=== PATIENT | male | born 1965 | race Caucasian/White ===

== ENCOUNTER 2020-05-10 07:32 | Outpatient (REF) | payer BC, SELFPAY ==
[2020-05-10 08:46] LABS: Lipase 210 U/L (8-78)
== END 2020-05-10 07:33 | disposition home or self-care (01) ==
LOC: HO.LAB 07:32
PROVIDERS: PCP Nurse Practitioner Family; Visit Provider Nurse Practitioner Family
DX: R74.8 Abnormal levels of other serum enzymes (principal)
CPT/HCPCS: 83690

== ENCOUNTER 2020-05-16 17:48 | Emergency (ER) | payer BC, SELFPAY ==
[2020-05-16 17:59] VITALS: BP 139/79; PULSE 63; RESP 16; TEMP 36.7; O2SAT 97; BMI 29.9
--- NOTE | 2020-05-16 19:14 | US_ITS ---
EXAMINATION: US ABDOMEN COMPLETE CLINICAL INFORMATION: Epigastric and upper abdominal pain. Elevated lipase. COMPARISON: Limited abdominal ultrasound and CT abdomen pelvis 03/26/2020 TECHNIQUE: Real-time imaging of the abdominal viscera. FINDINGS: PANCREAS: Mildly prominent pancreatic duct measuring 3 mm in diameter. Visualized portions of pancreas are otherwise normal in appearance. ABDOMINAL AORTA: The proximal, mid, and distal segments are normal in caliber. INFERIOR VENA CAVA: Visualized portions are normal. LIVER: Normal. The liver is normal in size. The liver contour is normal. Parenchymal echogenicity is normal. No focal hepatic lesion. There is no intrahepatic biliary duct dilatation seen. GALLBLADDER: The gallbladder is relatively contracted but unremarkable in appearance. COMMON BILE DUCT: Normal in caliber measuring 0.4 cm in diameter. RIGHT KIDNEY: Normal. No hydronephrosis. No renal calculi or focal parenchymal lesions. The kidney measures 11.1 cm in maximum dimension. LEFT KIDNEY: Normal. No hydronephrosis. No renal calculi or focal parenchymal lesions. The kidney measures 10 point cm in maximum dimension. SPLEEN: Normal. The spleen measures 9.7 cm in maximum dimension. Small adjacent splenule. FREE FLUID: None. IMPRESSION: Mildly prominent pancreatic duct measuring 3 mm in diameter. Visualized portions of pancreas are otherwise normal in appearance.
--- NOTE | 2020-05-16 19:16 | ED_ITS ---
HPI - Abdominal Pain General Chief Complaint: Recheck/Abnormal Lab/Rx Stated Complaint: abnormal labs Time Seen by Provider: 05/16/20 19:01 Source: patient Mode of arrival: ambulatory History of Present Illness HPI narrative: 54-year-old male with a past medical history of elevated lipase, family history of pancreatic and stomach CA presenting to ED sent in by PCP for back/RUQ pain radiating to epigastrium times a few weeks w/elevated lipase on outpatient labs on 05/10. Patient reports pain improves with eating. Denies nausea, vomiting, diarrhea, constipation, fever, chills, dysuria /hematuria MD elicited complaint: abdominal pain Related Data Allergies Allergy/AdvReac Type Severity Reaction Status Date / Time amoxicillin [From AUGMENTIN] Allergy Unknown UNKNOWN Verified 05/16/20 18:04 clarithromycin [From BIAXIN] Allergy Unknown UNKNOWN Verified 05/16/20 18:04 clavulanic acid Allergy Unknown UNKNOWN Verified 05/16/20 18:04 [From AUGMENTIN] Biaxin Allergy Unknown anaphylaxis Uncoded 03/16/20 00:00 Review of Systems Review of Systems Constitutional: No Weight loss, No Fever, No Chills, No Night Sweats Cardiovascular: No Chest Pain, No SOB, No Dyspnea on Exertion Respiratory: No Cough, No Sputum, No Wheezing Gastrointestinal: No Nausea, No Vomiting, No Diarrhea, No Constipation, + Abdominal pain Genitourinary: No Dysuria, No Urinary Frequency, No Hematuria, No Urinary Incontinence, No Urgency, No Flank Pain, No Urinary Flow Changes Skin: No Skin Lesions, No rash Yes all other systems are reviewed and are negative Physical Exam Vital Signs: Vital Signs: Vital Signs Temp Pulse Resp BP Pulse Ox 05/16/20 20:08 97.7 F 57 20 117/64 97 05/16/20 17:59 98.0 F 63 16 139/79 97 Body Mass Index 29.9 Const: General: cooperative and healthy appearing Orientation/conscious ness: patient oriented x3 Limitations: no limitations HENMT: Head: Yes normal to inspection Ears: hearing grossly normal bilaterally General nose exam: Normal external nose present Face and sinus: Yes normal facial exam Eyes: General: appearance normal, both eyes and all related structures EOM: EOMs intact bilaterally Neck: Neck: Yes normal visual inspection Resp: Effort & Inspection: normal respiratory effort Cardio: Rate: regular rate GI: Inspection: Yes normal to inspection Palpation (GI): Soft to palpation, Tenderness to palpation present (GI) in the epigastrum, in the LUQ and in the RUQ; with no rebound tenderness, no guarding and not rigid Skin: Rashes: no rashes Wounds: no wounds Neuro: General: patient oriented x3 Gait exam (Neuro): Normal gait present Extrem: General: Yes normal to inspection Course Course Course Narrative: - labs at patient's baseline / unremarkable. Lipase 55 (down from 210 on 05/10), UA negative - ultrasound showed mildly prominent pancreatic duct measuring 3 mm in diameter. Visualized portions of the pancreas are otherwise normal in appearance >> will refrain from CT at this time as patient with recent CT in February which showed unremarkable pancreas/ biliary ducts and no mass. Patient has follow-up with GI this Sunday w/Dr. Merchant. Patient in agreement with plan, worrisome signs and symptoms and strict return precautions discussed. Patient verbalized understanding feel safe for discharge MDM - Abdominal Pain MDM Narrative Medical decision making narrative: 54-year-old male with a past medical history of elevated lipase, family history of pancreatic and stomach CA presenting to ED sent in by PCP for back/RUQ pain radiating to epigastrium x a few weeks w/elevated lipase on outpatient labs on 05/10. On exam VSS, NAD/ well- appearing. Concern for pancreatitis/cholecystitis /cholelithiasis or obstruction. Lower concern for ACS/dissection, diverticulitis or appendicitis Plan: Labs, UA, abdomen ultrasound, IVF, reassess Lab Data Result diagrams: 05/16/20 19:23 05/16/20 19:23 Labs: Lab Results 05/16/20 05/16/20 05/16/20 Range/Units 19:23 19:23 19:23 WBC 6.7 (4.8-10.8) X10*3/uL RBC 4.70 (4.60-5.80) X10*6/uL Hgb 15.3 (14.0-18.0) g/dl Hct 44.8 (42-52) % MCV 95.3 (80-98) fL MCH 32.6 (27.0-33.0) pg MCHC 34.2 (31.0-36.0) g/dl RDW 12.1 (11.0-16.0) % Plt Count 238 (160-400) X10*3/uL MPV 9.2 L (9.4-12.4) fL Immature Gran % (Auto) 0.3 (0.0-0.4) % Neut % (Auto) 46.9 (45-73) % Lymph % (Auto) 38.5 (20-40) % [place] % (Auto) 9.9 (2-11) % Eos % (Auto) 3.7 (0-4) % Baso % (Auto) 0.7 (0-2) % Lymph # (Auto) 2.6 (1.2-4.9) X10*3/uL [place] # (Auto) 0.7 (0.1-1.2) X10*3/uL Eos # (Auto) 0.3 (0.0-0.4) X10*3/uL Baso # (Auto) 0.1 (0.0-0.2) X10*3/uL Abs Immat Gran (auto) 0.02 (0.00-0.03) X10*3/uL Absolute Neuts (auto) 3.1 (2.0-8.3) X10*3/uL Absolute Nucleated RBC 0.000 (0.0-0.012) X10*3/uL Nucleated RBC % (auto) 0.0 (0.0-0.2) /100WBC Hold Blue Top SEE NOTE Sodium 139 (135-145) mmol/L Potassium 4.1 (3.3-5.1) mmol/l Chloride 104 (96-108) mmol/L Carbon Dioxide 28 (22-29) mmol/L Anion Gap 11 L (12-20) BUN 25 H (9-16) mg/dL Creatinine 0.90 (0.5-1.4) mg/dL Estim Creat Clear Calc 94.4 Estimated GFR > 60 Random Glucose 100 (60-115) mg/dL Calcium 8.8 (8.4-10.2) mg/dL Magnesium (1.6-2.6) mg/dL Total Bilirubin 0.3 (0.0-1.0) mg/dL Direct Bilirubin 0.2 (0.0-0.5) mg/dL AST 21 (5-37) U/L ALT 21 (0-40) U/L Alkaline Phosphatase 78 (39-117) U/L Total Protein 7.0 (6.5-8.0) g/dL Albumin 4.0 (3.5-5.0) g/dL Lipase 55 (8-78) U/L Urine Color Urine Appearance Urine pH (5.0-8.0) Ur Specific [place] (1.005-1.025) Urine Protein (NEG-TRACE) MG/DL Urine Glucose (UA) (NEG) MG/DL Urine Ketones (NEG) MG/DL Urine Blood (NEG) Urine Nitrite (NEG) Ur Leukocyte Esterase (NEG) 05/16/20 05/16/20 Range/Units 19:23 19:23 WBC (4.8-10.8) X10*3/uL RBC (4.60-5.80) X10*6/uL Hgb (14.0-18.0) g/dl Hct (42-52) % MCV (80-98) fL MCH (27.0-33.0) pg MCHC (31.0-36.0) g/dl RDW (11.0-16.0) % Plt Count (160-400) X10*3/uL MPV (9.4-12.4) fL Immature Gran % (Auto) (0.0-0.4) % Neut % (Auto) (45-73) % Lymph % (Auto) (20-40) % [place] % (Auto) (2-11) % Eos % (Auto) (0-4) % Baso % (Auto) (0-2) % Lymph # (Auto) (1.2-4.9) X10*3/uL [place] # (Auto) (0.1-1.2) X10*3/uL Eos # (Auto) (0.0-0.4) X10*3/uL Baso # (Auto) (0.0-0.2) X10*3/uL Abs Immat Gran (auto) (0.00-0.03) X10*3/uL Absolute Neuts (auto) (2.0-8.3) X10*3/uL Absolute Nucleated RBC (0.0-0.012) X10*3/uL Nucleated RBC % (auto) (0.0-0.2) /100WBC Hold Blue Top Sodium (135-145) mmol/L Potassium (3.3-5.1) mmol/l Chloride (96-108) mmol/L Carbon Dioxide (22-29) mmol/L Anion Gap (12-20) BUN (9-16) mg/dL Creatinine (0.5-1.4) mg/dL Estim Creat Clear Calc Estimated GFR Random Glucose (60-115) mg/dL Calcium (8.4-10.2) mg/dL Magnesium 2.3 (1.6-2.6) mg/dL Total Bilirubin (0.0-1.0) mg/dL Direct Bilirubin (0.0-0.5) mg/dL AST (5-37) U/L ALT (0-40) U/L Alkaline Phosphatase (39-117) U/L Total Protein (6.5-8.0) g/dL Albumin (3.5-5.0) g/dL Lipase (8-78) U/L Urine Color YELLOW Urine Appearance CLEAR Urine pH 5.5 (5.0-8.0) Ur Specific [place] 1.025 (1.005-1.025) Urine Protein NEG (NEG-TRACE) MG/DL Urine Glucose (UA) NEG (NEG) MG/DL Urine Ketones NEG (NEG) MG/DL Urine Blood NEG (NEG) Urine Nitrite NEG (NEG) Ur Leukocyte Esterase NEG (NEG) Discharge Plan Discharge Clinical Impression: Abnormality of pancreatic duct Abdominal pain Qualifiers: Abdominal location: right upper quadrant Qualified Code(s): R10.11 - Right upper quadrant pain Patient Disposition: Home, Self-Care Instructions: Abdominal Pain (ED) Additional Instructions: your blood work showed a lipase of 55 Otherwise unremarkable Your ultrasound showed a mildly prominent pancreatic duct measuring 3 mm in diameter. You recently had a CT scan in February that did not show any abnormalities or mass, it is crucial that he follow-up with GI on Sunday as more eduled If her symptoms persist or worsen, become unbearable, you are unable to eat or drink or have fever return to the ED immediately Referrals: Phu Merchant [Physician] - 5 days ( as scheduled) [facility] Past Medical History Attestation statement: The following information was validated with the patient. Source: old records reviewed and nursing notes reviewed Medical History (Updated 05/16/20 @ 22:32 by ZARINA Eduardo) Elevated lipase Social History Social History Smoking Status: Never smoker Use of substances other than those prescribed or required for medical reasons: No Advance Directives: No Advance Directives Information Provided: No
[2020-05-16] MEDS: 0.9 % Sodium Chloride 1,000 ML 999 ML IVCONT (19:27)
[2020-05-16 19:37] LABS: MANUAL DIFF FLAG NO
[2020-05-16 19:38] LABS: Basophils Absolute Auto 0.1 X10*3/uL (0.0-0.2); Basophils Percent Auto 0.7 % (0-2); Eosinophils Absolute Auto 0.3 X10*3/uL (0.0-0.4); Eosinophils Percent Auto 3.7 % (0-4); Hematocrit 44.8 % (42-52); Hemoglobin 15.3 g/dl (14.0-18.0); Imm Gran Abs Auto 0.02 X10*3/uL (0.00-0.03); Imm Gran Pct Auto 0.3 % (0.0-0.4); Lymphocytes Absolute Auto 2.6 X10*3/uL (1.2-4.9); Lymphocytes Percent Auto 38.5 % (20-40); Mean Corpuscular HGB Conc 34.2 g/dl (31.0-36.0); Mean Corpuscular Hemoglobin 32.6 pg (27.0-33.0); Mean Corpuscular Volume 95.3 fL (80-98); Mean Platelet Volume 9.2 fL (9.4-12.4); Monocytes Absolute Auto 0.7 X10*3/uL (0.1-1.2); Monocytes Percent Auto 9.9 % (2-11); Neutrophils Absolute Auto 3.1 X10*3/uL (2.0-8.3); Neutrophils Percent Auto 46.9 % (45-73); Platelet Count 238 X10*3/uL (160-400); Red Cell Distribution Width 12.1 % (11.0-16.0); White Blood Count 6.7 X10*3/uL (4.8-10.8)
[2020-05-16 19:40] LABS: Glucose Urine UA NEG (NEG); Leukocyte Esterase Urine NEG (NEG); Nitrite Urine NEG (NEG); PH 5.5 (5.0-8.0); Specific Gravity - Urine 1.025 (1.005-1.025); Urine Blood NEG (NEG); Urine Ketones NEG (NEG); Urine Protein NEG (NEG-TRACE)
[2020-05-16 19:48] LABS: Appearance Urine CLEAR; Color Urine YELLOW
[2020-05-16 20:08] VITALS: BP 117/64; PULSE 57; RESP 20; TEMP 36.5; O2SAT 97
[2020-05-16 20:10] LABS: Alanine Aminotransferase 21 U/L (0-40); Alkaline Phosphatase 78 U/L (39-117); Anion Gap 11 (12-20); Aspartate Amino Transferase 21 U/L (5-37); Bilirubin Direct 0.2 mg/dL (0.0-0.5); Bilirubin Total 0.3 mg/dL (0.0-1.0); Blood Urea Nitrogen 25 mg/dL (9-16); Calcium 8.8 mg/dL (8.4-10.2); Carbon Dioxide 28 mmol/L (22-29); Chloride 104 mmol/L (96-108); Creatinine Clr Calc Pharmacy 94.4; Estimated Glomerular Filt Rate > 60; Glucose Random 100 mg/dL (60-115); Lipase 55 U/L (8-78); Potassium 4.1 mmol/l (3.3-5.1); Sodium 139 mmol/L (135-145)
[2020-05-16 20:11] LABS: Magnesium 2.3 mg/dL (1.6-2.6)
--- NOTE | 2020-05-16 20:58 | PC.NURSE ---
US BEING DONE AT BEDSIDE AT THIS TIME.
== END 2020-05-16 22:49 | disposition home or self-care (01) ==
PROVIDERS: Physician Assistant; Emergency Provider Student in an Organized Health Care Education/Training Program; PCP Nurse Practitioner Family
DX: R10.11 Right upper quadrant pain (principal); Q45.3 Other congenital malformations of pancreas and pancreatic duct
CPT/HCPCS: 36415; 76700; 80048; 80076; 81003; 83690; 83735; 85025; 96360; 99284; 99285

== ENCOUNTER 2020-05-20 07:39 | Outpatient (REF) | payer BC, SELFPAY ==
[2020-05-20 09:14] LABS: Alanine Aminotransferase 19 U/L (0-40); Albumin Level 4.2 g/dL (3.5-5.0); Alkaline Phosphatase 78 U/L (39-117); Aspartate Amino Transferase 21 U/L (5-37); Bilirubin Direct 0.4 mg/dL (0.0-0.5); Bilirubin Total 0.9 mg/dL (0.0-1.0); Blood Urea Nitrogen 24 mg/dL (9-16); Estimated Glomerular Filt Rate > 60; Total Protein 7.3 g/dL (6.5-8.0); Triglycerides 43 mg/dL
[2020-05-20 09:47] LABS: Lipase 139 U/L (8-78)
[2020-05-21 13:02] LABS: Carbohydrate Antigen 19-9 8 U/mL (<34)
[2020-05-21 22:42] LABS: Immunoglobulin G Subclass 1 706 mg/dL (382-929); Immunoglobulin G Subclass 2 671 mg/dL (241-700); Immunoglobulin G Subclass 3 23 mg/dL (22-178); Immunoglobulin G Subclass 4 58.7 mg/dL (4-86); Immunoglobulin G Total 1537 mg/dL (600-1640)
== END 2020-05-20 07:40 | disposition home or self-care (01) ==
LOC: HO.LAB 07:39
PROVIDERS: PCP Nurse Practitioner Family; Visit Provider Internal Medicine
DX: R10.13 Epigastric pain (principal); R74.8 Abnormal levels of other serum enzymes
CPT/HCPCS: 36415; 80076; 82565; 82784; 83690; 84478; 84520; 86301

== ENCOUNTER 2020-05-28 08:00 | Outpatient (REF) | payer BC, SELFPAY ==
--- NOTE | 2020-05-28 07:59 | MR_ITS ---
EXAMINATION: MR ABDOMEN WITHOUT AND WITH CONTRAST CLINICAL INFORMATION: Intractable abdominal pain. Elevated lipase. COMPARISON: Previous abdominal ultrasound most recent April [address] of the abdomen and pelvis most recent February 2020 TECHNIQUE: MR abdomen was performed without and with use of 8.5 mL intravenous Gadavist gadolinium contrast. Postcontrast images are performed in multiphase dynamic sequences. Imaging was performed in 3 planes. MRCP sequences were also performed. FINDINGS: LUNG BASES: The visualized lung bases are unremarkable. LIVER, GALLBLADDER, AND BILIARY TREE: The liver is normal in size, smooth in contour, and normal in signal. No focal hepatic lesion or biliary ductal dilatation is present. The gallbladder is unremarkable with no evidence of gallbladder wall thickening, or obvious pericholecystic inflammatory changes. PANCREAS: The tail of the pancreas appears slightly prominent measuring 2.2 cm in AP dimension, upper normal size is 1 cm. The pancreas is otherwise normal in size, shape and signal. No focal pancreatic lesion or abnormal enhancement is seen. The peripancreatic fat is normal. The main pancreatic duct is normal. SPLEEN: Normal. ADRENAL GLANDS: Normal. KIDNEYS AND URETERS: The kidneys are normal in size, shape, and enhance symmetrically. No hydronephrosis. No perinephric stranding. GASTROINTESTINAL TRACT: No bowel obstruction. No ascites or fluid collection. ABDOMINAL WALL: No significant hernia is appreciated. LYMPH NODES: No lymphadenopathy. VASCULAR: Unremarkable. OSSEOUS STRUCTURES: Marrow signal normal. There are mild degenerative changes of the spine. MR/MR abdomen wo/w con IMPRESSION: The tail of the pancreas appears prominent or thickened measuring 2.2 cm in AP dimension, upper normal is 1 cm. The pancreas is otherwise normal-appearing. Normal-appearing gallbladder. No gallstones seen.
== END 2020-05-28 08:01 | disposition home or self-care (01) ==
LOC: HO.MRI 08:00
PROVIDERS: PCP Nurse Practitioner Family; Visit Provider Internal Medicine
DX: R10.13 Epigastric pain (principal); R74.8 Abnormal levels of other serum enzymes
CPT/HCPCS: 74183; A9585

== ENCOUNTER 2020-08-19 06:10 | Outpatient (REF) | payer BC, SELFPAY ==
[2020-08-19 07:58] LABS: MANUAL DIFF FLAG NO
[2020-08-19 08:13] LABS: Basophils Percent Auto 0.5 % (0-2); Eosinophils Absolute Auto 0.2 X10*3/uL (0.0-0.4); Hematocrit 42.1 % (42-52); Hemoglobin 13.6 g/dl (14.0-18.0); Imm Gran Abs Auto 0.03 X10*3/uL (0.00-0.03); Imm Gran Pct Auto 0.3 % (0.0-0.4); Lymphocytes Absolute Auto 1.9 X10*3/uL (1.2-4.9); Lymphocytes Percent Auto 21.8 % (20-40); Mean Corpuscular HGB Conc 32.3 g/dl (31.0-36.0); Mean Corpuscular Hemoglobin 30.4 pg (27.0-33.0); Monocytes Absolute Auto 0.9 X10*3/uL (0.1-1.2); Neutrophils Absolute Auto 5.7 X10*3/uL (2.0-8.3); Neutrophils Percent Auto 65.4 % (45-73); Platelet Count 379 X10*3/uL (160-400); Red Blood Count 4.48 X10*6/uL (4.60-5.80); Red Cell Distribution Width 11.6 % (11.0-16.0); White Blood Count 8.6 X10*3/uL (4.8-10.8)
[2020-08-19 08:47] LABS: Alanine Aminotransferase 28 U/L (0-40); Albumin Level 3.8 g/dL (3.5-5.0); Alkaline Phosphatase 92 U/L (39-117); Amylase 60 U/L (28-100); Aspartate Amino Transferase 18 U/L (5-37); Bilirubin Direct 0.3 mg/dL (0.0-0.5); Bilirubin Total 0.6 mg/dL (0.0-1.0); C Reactive Protein 5.28 mg/dL (< or = 0.50); Lipase 50 U/L (8-78); Total Protein 7.4 g/dL (6.5-8.0)
[2020-08-19 08:55] LABS: Erythrocyte Sedimentation Rate 57 MM/HR (0-15)
== END 2020-08-19 06:11 | disposition home or self-care (01) ==
LOC: HO.LAB 06:10
PROVIDERS: PCP Nurse Practitioner Family; Visit Provider Internal Medicine
DX: R10.13 Epigastric pain (principal); K85.90 Acute pancreatitis without necrosis or infection, unspecified
CPT/HCPCS: 36415; 80076; 82150; 83690; 85025; 85652; 86140

== ENCOUNTER 2020-08-30 06:08 | Outpatient (REF) | payer BC, SELFPAY ==
[2020-08-30 12:43] LABS: SARS COV2 IgG Negative (Negative)
== END 2020-08-30 06:09 | disposition home or self-care (01) ==
LOC: HO.HMGCLDS 06:08
PROVIDERS: PCP Nurse Practitioner Family; Visit Provider Nurse Practitioner Family
DX: Z01.84 Encounter for antibody response examination (principal); Z20.822 Contact with and (suspected) exposure to COVID-19
CPT/HCPCS: 36415; 86769; U0003; U0005

== ENCOUNTER 2020-09-18 08:06 | Outpatient (REF) | payer BC, SELFPAY ==
[2020-09-18 09:16] LABS: Blood Urea Nitrogen 25 mg/dL (9-16); C Reactive Protein 0.12 mg/dL (< or = 0.50); Estimated Glomerular Filt Rate > 60
[2020-09-18 10:00] LABS: Erythrocyte Sedimentation Rate 2 MM/HR (0-15)
== END 2020-09-18 08:07 | disposition home or self-care (01) ==
LOC: HO.LAB 08:06
PROVIDERS: PCP Hospitalist; Visit Provider Internal Medicine
DX: I88.0 Nonspecific mesenteric lymphadenitis (principal)
CPT/HCPCS: 36415; 82565; 84520; 85652; 86140

== ENCOUNTER 2020-09-21 06:00 | Outpatient (REF) | payer BC, SELFPAY ==
--- NOTE | ~2020-09-21 | CT_ITS ---
EXAMINATION: CT ABDOMEN AND PELVIS WITH CONTRAST CLINICAL INFORMATION: Mesenteric adenitis COMPARISON: Previous CT of the abdomen and pelvis February 2020, ultrasound April 2020 and MRI April 2020 TECHNIQUE: Multidetector volumetric images were obtained from the superior aspect of the liver through the pubic symphysis following administration 85 mL of Omnipaque 350 intravenous contrast. Sagittal and coronal reformatted images were obtained on the technologist's workstation. Oral contrast: Yes This CT examination was performed using dose optimization techniques as appropriate, variously including the following: *Automated exposure control *Adjustment of mA and/or kV according to patient size (this includes techniques or standardized protocols for targeted exams where dose is matched to indication/reason for exam; i.e. extremities or head) *Use of iterative reconstruction technique DLP: 413 mGy-cm FINDINGS: LUNG BASES: The visualized lung bases are unremarkable. LIVER, GALLBLADDER, AND BILIARY TREE: The liver is normal in size, shape, and attenuation. No focal hepatic lesion or biliary ductal dilatation is present. The gallbladder is unremarkable with no evidence of radiopaque gallstones, gallbladder wall thickening, or obvious pericholecystic inflammatory changes. PANCREAS: The tail the pancreas appears prominent measuring 2.1 cm in AP dimension, upper normal for this region measuring 1 cm. This is similar to previous exams. The pancreas is normal in attenuation. No focal lesion is seen. The main pancreatic duct does not appear dilated. The peripancreatic fat is normal. SPLEEN: Unremarkable. There is a small splenule near the inferior splenic hilum that is stable. ADRENAL GLANDS: Unremarkable. KIDNEYS AND URETERS: The kidneys are normal in size, shape, and attenuation. No hydronephrosis, hydroureter, or calculi seen. No perinephric stranding. BLADDER: Unremarkable. GASTROINTESTINAL TRACT: There is stool throughout the colon. The small and large bowel are otherwise unremarkable. The appendix is not identified. No evidence of mesenteric or adenitis/diverticulitis is seen. ABDOMINAL WALL: There is a small umbilical hernia containing fat. LYMPH NODES: Normal. VASCULAR: Unremarkable. PELVIC VISCERA: Unremarkable. OSSEOUS STRUCTURES: There are degenerative changes of the spine. CT/CT abdomen pelvis w con IMPRESSION: Unremarkable exam. The tail the pancreas is slightly prominent similar to previous exams. No evidence of mesenteric adenitis seen.
[2020-09-21] MEDS: iohexoL 350 MG/ML 100 ML INFUS..BTL IV (09:11)
== END 2020-09-21 06:01 | disposition home or self-care (01) ==
LOC: HO.CT 06:00
PROVIDERS: Visit Provider Internal Medicine
DX: I88.0 Nonspecific mesenteric lymphadenitis (principal)
CPT/HCPCS: 74177; Q9967

== ENCOUNTER 2022-08-22 09:19 | Outpatient (REF) | payer BC, SELFPAY ==
[2022-08-22 11:02] LABS: Bilirubin Direct 0.2 mg/dL (0.0-0.5)
[2022-08-22 11:09] LABS: Alanine Aminotransferase 24 U/L (0-40); Albumin Level 4.1 g/dL (3.5-5.0); Alkaline Phosphatase 83 U/L (39-117); Amylase 75 U/L (28-100); Aspartate Amino Transferase 21 U/L (5-37); Bilirubin Total 0.7 mg/dL (0.0-1.0); Blood Urea Nitrogen 23 mg/dL (9-16); Estimated Glomerular Filt Rate > 60; Lipase 61 U/L (8-78); Total Protein 7.2 g/dL (6.5-8.0)
== END 2022-08-22 09:20 | disposition home or self-care (01) ==
LOC: HO.10HDL 09:19
PROVIDERS: Visit Provider Internal Medicine
DX: I88.0 Nonspecific mesenteric lymphadenitis (principal); Z87.19 Personal history of other diseases of the digestive system
CPT/HCPCS: 36415; 80076; 82150; 82565; 83690; 84520

== ENCOUNTER 2022-09-15 06:56 | Outpatient (REF) | payer BC, SELFPAY ==
--- NOTE | ~2022-09-15 | CT_ITS ---
EXAMINATION: CT ABDOMEN AND PELVIS WITH CONTRAST CLINICAL INFORMATION: History mesenteric adenitis, pancreatitis. Follow-up. COMPARISON: CT abdomen and pelvis 09/21/2020, MR abdomen 05/28/2020, ultrasound abdomen 05/16/2020 TECHNIQUE: Multidetector volumetric images were obtained from the superior aspect of the liver through the pubic symphysis following administration 85 mL of Omnipaque 350 intravenous contrast. Sagittal and coronal reformatted images were obtained on the technologist's workstation. Oral contrast: Yes This CT examination was performed using dose optimization techniques as appropriate, variously including the following: *Automated exposure control *Adjustment of mA and/or kV according to patient size (this includes techniques or standardized protocols for targeted exams where dose is matched to indication/reason for exam; i.e. extremities or head) *Use of iterative reconstruction technique DLP: 427 mGy-cm FINDINGS: LUNG BASES: The visualized lung bases are unremarkable. LIVER, GALLBLADDER, AND BILIARY TREE: The liver is normal in size, shape, and attenuation. No focal hepatic lesion or biliary ductal dilatation is present. The gallbladder is unremarkable with no evidence of radiopaque gallstones, gallbladder wall thickening, or obvious pericholecystic inflammatory changes. PANCREAS: The pancreas is similar in size and contour to prior studies. There is no interval pancreatic enlargement or peripancreatic inflammatory changes. No pancreatic ductal distention. SPLEEN: Normal in size. Incidental 1.3 cm splenule left upper quadrant. ADRENAL GLANDS: Normal. KIDNEYS AND URETERS: The kidneys are normal in size, shape, and attenuation. No hydronephrosis, hydroureter, or calculi seen. No perinephric stranding. BLADDER: Unremarkable. GASTROINTESTINAL TRACT: No bowel obstruction or focal inflammatory changes in bowel or mesentery. Appendix not seen with certainty, not visualized on prior CT as well. No inflammatory changes around the cecum or terminal ileum. No ascites or fluid collection. ABDOMINAL WALL: No significant hernia is appreciated. LYMPH NODES: No lymphadenopathy. VASCULAR: Unremarkable. PELVIC VISCERA: Unremarkable. OSSEOUS STRUCTURES: Unremarkable. CT/CT abdomen pelvis w IV con IMPRESSION: 1. Pancreas similar in size and contour to prior studies. No interval pancreatic enlargement or peripancreatic inflammatory changes. No pancreatic ductal distention. 2. No lymphadenopathy. No inflammatory changes in bowel or mesentery.
[2022-09-15] MEDS: iohexoL 350 MG/ML 100 ML INFUS..BTL IV (09:51)
[2022-09-15] MEDS: Barium Sulfate Oral (Mocha) 450 ML ORAL.SUSP 900 ML PO (09:52)
== END 2022-09-15 06:57 | disposition home or self-care (01) ==
LOC: HO.CT 06:56
PROVIDERS: PCP Internal Medicine; Visit Provider Internal Medicine
DX: I88.0 Nonspecific mesenteric lymphadenitis (principal); Z87.19 Personal history of other diseases of the digestive system
CPT/HCPCS: 74177; Q9967